=== PATIENT | male | born 1955 | race Two or more races ===

== ENCOUNTER 2021-12-06 06:12 | Inpatient (IN) | payer OTHER ==
[~2021-12-06] VITALS: Ht 162.6 cm; Wt 48.5 kg
--- NOTE | 2021-12-06 06:14 | NUR ---
[facility]. PER RA, PT HAD HIS COVID BOOSTER YESTERDAY. PT PLACED IN BED 5, ER MD AND RT AT BEDSIDE. LINE ESTABLISHED, BLOOD WORK COLLECTED, WILL CONTINUE TO MONITOR.
--- NOTE | 2021-12-06 06:18 | NUR ---
PT TOLERATING VENT SETTINGS AT 100% PORTEX 8 CUFFED FIO2 40% TV 400 PEEP 5
[2021-12-06] MEDS ORDERED: ONDANSETRON HCL/PF 4 MG/2 ML VIAL ONE (06:23)
[2021-12-06] MEDS ORDERED: PIPERACILLIN /TAZOBACTAM 3.375 G VIAL IV ONE (06:23)
--- NOTE | 2021-12-06 06:29 | NUR ---
RT pt placed on mechanical vent with settings from facility. trached, portex 8. settings: AC 18 400 40% +5. vent plugged in to red outlet. ambu bag at bedside. pt suctioned via trach. small, thick, awad secretions suctioned. no sob, no resp distress noted. will endorse to oncoming shift.
[2021-12-06] MEDS ORDERED: IV NS 0.9% 1,000 ML BAG IV ONE ×2 (06:30→07:00)
--- NOTE | 2021-12-06 06:35 | NUR ---
LFA #18 S/L; PATENT AND INTACT. BLOOD COLLECTED
--- NOTE | 2021-12-06 06:55 | NUR ---
URINE AND COVID ANTIGEN SWAB COLLECTED AND SENT TO LAB
[2021-12-06] MEDS ORDERED: ONDANSETRON HCL/PF - ER 4 MG/2 ML VIAL IV ONE (07:00)
[2021-12-06] MEDS ORDERED: PIPERACILLIN /TAZOBACTAM 3.375 G in IV D5W 50 ML IV ONE (07:00)
--- NOTE | 2021-12-06 07:00 | NUR ---
STEAM CONDITIONER FILLING AT PT'S BEDSIDE
[2021-12-06 07:06] LABS: BASOPHILS % (AUTO) 0.1 % (0.0-2.0); EOSINOPHILS % (AUTO) 1.5 % (0.0-6.0); HEMATOCRIT 44 % (39-51); HEMOGLOBIN 14.8 g/dL (13.5-17.5); LYMPHOCYTES # (AUTO) 0.9 K/uL (0.8-4.8); LYMPHOCYTES % (AUTO) 5.2 % (20.0-44.0); MEAN CORPUSCULAR HGB CONC 34 g/dl (31.0-36.0); MEAN CORPUSCULAR VOLUME 99 fL (80-96); MONOCYTES % (AUTO) 5.7 % (2.0-12.0); NEUTROPHILS # (AUTO) 15.2 K/uL (1.8-8.9); NEUTROPHILS % (AUTO) 87.5 % (43.0-81.0); PLATELET COUNT (AUTO) 315 K/uL (150-450); RED BLOOD CELL COUNT(AUTO) 4.38 MIL/uL (4.5-6.0); WHITE BLOOD COUNT (AUTO) 17.4 K/uL (4.3-11.0)
--- NOTE | 2021-12-06 07:28 | NUR ---
RECEIVED REPORT FROM HOMA PICKENS FOR LIGIA. PT IS AAOX0, ON VENT VIA TRACH, ON C WINFORMS DEVELOPER, KEPT RESTED AND COMFORTABLE. WILL CONTINUE TO MONITOR.
[2021-12-06 07:38] LABS: CARBON DIOXIDE 24 mmol/L (21-32); CHLORIDE 103 mmol/L (98-107); CREATININE 0.8 mg/dL (0.6-1.3); GLUCOSE 159 mg/dL (74-106); POTASSIUM 3.8 mmol/L (3.5-5.1); SODIUM SERUM 138 mmol/L (136-145); UREA NITROGEN, BLOOD 14 mg/dL (7-18)
[2021-12-06 07:52] LABS: ALANINE AMINOTRANSFERASE 49 U/L (12-78); ALBUMIN 3.4 g/dL (3.4-5.0); ALKALINE PHOSPHATASE 167 U/L (46-116); ASPARTATE AMINOTRANSFERASE 26 U/L (15-37); BILIRUBIN,DIRECT 0.1 mg/dL (0.0-0.2); BILIRUBIN,TOTAL 0.5 mg/dL (0.2-1.0); TOTAL PROTEIN, SERUM 7.7 g/dL (6.4-8.2)
--- NOTE | 2021-12-06 08:04 | NUR ---
SPOKE TO LAB, WILL LINEMAN A CLASS URINE SAMPLE
[2021-12-06 08:37] LABS: BILIRUBIN,URINE NEGATIVE (NEGATIVE); COLOR,URINE YELLOW (YELLOW); LEUKOCYTE ESTERASE ,URINE NEGATIVE (NEGATIVE); NITRITE, URINE NEGATIVE (NEGATIVE); PROTEIN,URINE TRACE mg/dl (NEGATIVE); UGLUCOSE NEGATIVE (NEGATIVE); UROBILINOGEN,URINE 0.2 EU/dL (0.2)
[2021-12-06 08:47] LABS: BACTERIA,URINE None seen /HPF (None Seen); SQUAMOUS EPITHELIAL CELL,UR Few /HPF (None Seen); WBC,URINE NONE SEEN /HPF (0-3)
--- NOTE | 2021-12-06 09:23 | NUR ---
AT BEDSIDE FOR EVAL.
[2021-12-06] MEDS ORDERED: SENN-175 GT (10:47)
[2021-12-06] MEDS ORDERED: HYDR-4077 GT (10:47)
[2021-12-06] MEDS ORDERED: ENOX40DI SQ (10:47)
[2021-12-06] MEDS ORDERED: MULT-439 GT (10:47)
[2021-12-06] MEDS ORDERED: LACT-209 (10:47)
[2021-12-06] MEDS ORDERED: AMLO2.5T2 GT (10:47)
[2021-12-06] MEDS ORDERED: FERR325T23 GT (10:47)
[2021-12-06] MEDS ORDERED: ASCO500C17 GT (10:47)
[2021-12-06] MEDS ORDERED: LEVE1000 GT (10:47)
[2021-12-06] MEDS ORDERED: LANS30CA56 GT (10:47)
[2021-12-06] MEDS ORDERED: DOCU-141 GT (10:47)
[2021-12-06] MEDS ORDERED: Z GUARD REMEDY 4 OZ OINT TP PRN (11:00)
[2021-12-06] MEDS ORDERED: ACETAMINOPHEN 325 MG TABLET PO PRN (11:00)
[2021-12-06] MEDS ORDERED: IV NS 0.9% 1,000 ML IV PRN (11:00)
[2021-12-06] MEDS ORDERED: ZOLPIDEM TARTRATE 5 MG TABLET PO PRN (11:00)
[2021-12-06] MEDS ORDERED: ONDANSETRON HCL/PF 4 MG/2 ML VIAL IVP PRN (11:00)
--- NOTE | 2021-12-06 11:06 | NUR ---
DR MCCULLOUGH IS MADE AWARE THAT THERE ARE 2 ORDERS OF NORAML SALINE. ONE TO RUN AT 125ML/HR AND THE ORDER ONE TO RUN AT 75ML/HR. PER DR MCCULLOUGH DISCONTINUE NORMAL SALINE AT 75ML/HR. THE ORDER IS READ BACK, VERIFIED. NOTED AND CARRIED OUT.
--- NOTE | 2021-12-06 11:07 | NUR ---
SPOKE TO KAELA ALAN [phone]. SHE STATED PATIENT'S PREVIOUS [facility] [place] AND HE'S BEEN THERE FOR THE PAST 2 YEARS PRIOR TO HIS 2 WEEK INPATIENT AT [facility].
[2021-12-06] MEDS ORDERED: ENOXAPARIN SODIUM 40 MG/0.4 ML DISP.SYRIN SQ ONE (11:09)
[2021-12-06] MEDS: IV NS 0.9% 1,000 ML IV PRN ×2 (11:11→20:23)
[2021-12-06] MEDS: ENOXAPARIN SODIUM 40 MG/0.4 ML DISP.SYRIN SQ SCH (11:20)
--- NOTE | 2021-12-06 12:21 | NUR ---
NOTIFIED NURSING SUP REGARDING PT BED
[2021-12-06] MEDS ORDERED: VANCOMYCIN 1.25 GM in IV D5W 250 ML IV ONE (13:00)
[2021-12-06] MEDS: PIPERACILLIN /TAZOBACTAM 4.5 G in IV D5W 50 ML IV SCH ×2 (14:23→20:21)
--- NOTE | 2021-12-06 19:13 | NUR ---
report given to nurse Luis
--- NOTE | 2021-12-06 21:00 | NUR ---
RN NOTES RECEIVED REPORT FROM ER NURSE GLORIA
--- NOTE | 2021-12-06 21:05 | NUR ---
REPORT GIVEN TO WILLY CLEMENT RN FOR LIGIA. LARGE BM & URINE NOTED. PT KEPT CLEAN & DRY.
--- NOTE | 2021-12-06 21:20 | NUR ---
VOLCANOLOGY TEACHER NOTES RECEIVED A 65 YEAR OLD MALE FROM ER. PATIENT ALERT AND ORIENTED X 0, NON VERBAL. RESPIRATORY EVEN AND UNLABORED, NO SOB NOTED, NOT IN DISTRESS, NO FACIAL GRIMACING NOTED. ON MECHANICAL VENT, SETTING TOLERATED WELL SATING AT 100%. ON TELE MONITORING. SKIN WARM AND DRY. NOTED WITH IV ACCESS AT LEFT FOREARM 18G AND RIGHT WRIST #20, PATENT, INTACT, FLUSHED WITH NS, NO INFILTRATION NOTED. PATIENT NOTED WITH GTUBE, INPACED, INTACT, FLUSHED WITH WATER TOLERATED WELL, NO RESIDUAL NOTED UPON ASPIRATION. HEAD OF BED KEPT ELEVATED. V/S TAKEN AND RECORDED, COMPLETE BODY ASSESSMENT DONE. ALL SAFETY PRECAUTION PROVIDED. BED IN LOWEST POSITION, LOCKED AND BED ALARM ARMED. CALL LIGHT WITHIN REACH.
--- NOTE | 2021-12-06 21:22 | NUR ---
PT TRANSFERRED TO [facility] VIA ACLS PROTOCOL WITH RT. PT TOLERATED TRANSFER WELL. VSS
[2021-12-06 21:33] VITALS: BP 92/45
--- NOTE | 2021-12-06 21:39 | NUR ---
RT Patient transferred from ER BED 5 to [facility]. Vent plugged into red outlet. Alarms loud and audible. Ambu bag and spare trach at bedside. NO SOB noted.
[2021-12-06] MEDS: JEVITY 1.2 CAL 1,000 ML BOTTLE GT PRN (23:25)
[2021-12-07] VITALS: BP 113/53
[2021-12-07] MEDS: VANCOMYCIN 1 GM in IV D5W 250 ML IV SCH ×2 (00:49→12:28)
[2021-12-07] MEDS: PIPERACILLIN /TAZOBACTAM 4.5 G in IV D5W 50 ML IV SCH ×4 (02:22→20:33)
[2021-12-07 04:00] VITALS: BP 116/45
--- NOTE | 2021-12-07 07:03 | NUR ---
RN CLOSING NOTES PATIENT REMAIN STABLE THROUGH OUT THE SHIFT. RESPIRATORY EVEN AND UNLABORED, NO SOB NOTED, NOT IN DISTRESS, NO FACIAL GRIMACING NOTED. ON MECHANICAL VENT, SETTING TOLERATED WELL SATING AT 100%. SR ON TELE MONITORING. RUNNING ON JEVITY 1.2 @65ML/HR. HEAD OF BED KEPT ELEVATED. ALL DUE MEDS GIVEN ORDERED. ALL SAFETY PRECAUTION PROVIDED. BED IN LOWEST POSITION, LOCKED AND BED ALARM ARMED. CALL LIGHT WITHIN REACH.
--- NOTE | 2021-12-07 07:37 | NUR ---
TELE/RN OPENING NOTES RECEIVED PATIENT IN BED. ON COVID ISOLATION. AWAKE, NON-VERBAL. RESPIRATORY EVEN AND UNLABORED, NO SOB NOTED, NOT IN DISTRESS, NO FACIAL GRIMACING NOTED. ON MECHANICAL VENT, SETTING TOLERATED WELL SATING AT 100%. SR ON TELE MONITORING. ON JEVITY 1.2 @65ML/HR RUNNING VIA G-TUBE. SAFETY PRECAUTIONS IN PLACED: BED IN LOWEST LOCKED POSITION, BED ALARM ON, CALL LIGHT WITHIN REACH. HEAD OF BED ELEVATED. WILL CONTINUE TO MONITOR PATIENT.
[2021-12-07 07:57] LABS: BASOPHILS % (AUTO) 0.3 % (0.0-2.0); EOSINOPHILS % (AUTO) 9.3 % (0.0-6.0); HEMATOCRIT 32 % (39-51); HEMOGLOBIN 11.3 g/dL (13.5-17.5); LYMPHOCYTES # (AUTO) 0.9 K/uL (0.8-4.8); MEAN CORPUSCULAR HGB CONC 35 g/dl (31.0-36.0); MEAN CORPUSCULAR VOLUME 98 fL (80-96); MONOCYTES # (AUTO) 0.6 K/uL (0.1-1.30); MONOCYTES % (AUTO) 9.4 % (2.0-12.0); NEUTROPHILS # (AUTO) 4.4 K/uL (1.8-8.9); PLATELET COUNT (AUTO) 194 K/uL (150-450); RED BLOOD CELL COUNT(AUTO) 3.28 MIL/uL (4.5-6.0); WHITE BLOOD COUNT (AUTO) 6.5 K/uL (4.3-11.0)
[2021-12-07] MEDS: IV NS 0.9% 1,000 ML IV PRN ×2 (08:02→17:57)
[2021-12-07 08:24] LABS: ALBUMIN 2.6 g/dL (3.4-5.0); BILIRUBIN,TOTAL 0.7 mg/dL (0.2-1.0); CREATININE 0.6 mg/dL (0.6-1.3); MAGNESIUM 2.3 mg/dL (1.8-2.4); PHOSPHORUS 2.4 mg/dL (2.5-4.9); POTASSIUM 3.6 mmol/L (3.5-5.1); TOTAL PROTEIN, SERUM 5.8 g/dL (6.4-8.2)
[2021-12-07 10:00] VITALS: BP 92/52
[2021-12-07] MEDS: DEXAMETHASONE SOD PHOSPHATE 10 MG/ML VIAL IV SCH (10:47)
[2021-12-07] MEDS ORDERED: NEUTRA PHOS 1 POWD.PACKET GT ONE (12:00)
[2021-12-07] MEDS: ENOXAPARIN SODIUM 40 MG/0.4 ML DISP.SYRIN SQ SCH (12:27)
[2021-12-07 12:35] VITALS: BP 102/55
[2021-12-07] MEDS: JEVITY 1.2 CAL 1,000 ML BOTTLE GT PRN (17:20)
[2021-12-07 18:22] VITALS: BP 104/62
--- NOTE | 2021-12-07 18:47 | NUR ---
TELE/RN CLOSING NOTES PATIENT IN BED. ON COVID ISOLATION. AWAKE, NON-VERBAL. RESPIRATORY EVEN AND UNLABORED, NO SOB NOTED, NOT IN DISTRESS, NO FACIAL GRIMACING NOTED. ON MECHANICAL VENT, SETTINGS TOLERATED WELL SATURATING AT 100%. SR ON TELE MONITORING. ON JEVITY 1.2 @65ML/HR RUNNING VIA G-TUBE. SAFETY PRECAUTIONS IN PLACED: BED IN LOWEST LOCKED POSITION, BED ALARM ON, CALL LIGHT WITHIN REACH. HEAD OF BED ELEVATED. ALL NEEDS MET. KEPT PATIENT CLEAN AND COMFORTABLE ALL THROUGHOUT THE SHIFT. WILL ENDORSE TO THE NEXT SHIFT..
--- NOTE | 2021-12-07 19:15 | NUR ---
HOT FRAME TENDER OPENING NOTES RECEIVED PATIENT LAYING AWAKE IN BED. A/O X0. PATIENT WITH REGULAR AND UNLABORED BREATHING ON MECH. VENT. TOLERATING SETTINGS WELL. NO SIGNS AND SYMPTOMS OF DISTRESS NOTED AT THIS TIME. NO COMPLAINS OF PAIN OR DISCOMFORT AT THIS TIME. IV ACCESS LFA G #18 INFUSING NS 125 ML/HR AND R WRIST G #20 SL. IV ACCESSES PATENT AND INTACT. SAFETY PRECAUTIONS ENFORCED WITH BED LOCKED AND AT LOWEST POSITION. SIDERAILS UP X2. CALL LIGHT WITHIN REACH AT ALL TIMES. WILL CONTINUE TO MONITOR PATIENT.
[2021-12-07 20:00] VITALS: BP 114/71
[2021-12-08] VITALS: BP 109/61
[2021-12-08] MEDS: VANCOMYCIN 1 GM in IV D5W 250 ML IV SCH (01:56)
[2021-12-08] MEDS: IV NS 0.9% 1,000 ML IV PRN ×2 (02:01→13:16)
[2021-12-08] MEDS: PIPERACILLIN /TAZOBACTAM 4.5 G in IV D5W 50 ML IV SCH ×2 (02:36→08:08)
[2021-12-08 04:00] VITALS: BP 105/63
--- NOTE | 2021-12-08 06:58 | NUR ---
INTERLOCKING AND SIGNAL MECHANIC CLOSING NOTES PATIENT STILL LAYING AWAKE IN BED. A/O X0. PATIENT WITH REGULAR AND UNLABORED BREATHING ON MECH. VENT. TOLERATING SETTINGS WELL. NO SIGNS AND SYMPTOMS OF DISTRESS NOTED AT THIS TIME. NO COMPLAINS OF PAIN OR DISCOMFORT AT THIS TIME. PATIENT ON TELE MONITOR READING SR @ 72 BPM. IV ACCESS LFA G #18 INFUSING NS 125 ML/HR AND R WRIST G #20 SL. IV ACCESSES PATENT AND INTACT. SAFETY PRECAUTIONS ENFORCED WITH BED LOCKED AND AT LOWEST POSITION. SIDERAILS UP X2. CALL LIGHT WITHIN REACH AT ALL TIMES. WILL ENDORSE CONTINUITY OF CARE TO DAY SHIFT NURSE.
--- NOTE | 2021-12-08 07:30 | NUR ---
TELE/RN AM NOTES RECEIVED PATIENT IN BED. OPENS EYES, NONVERBAL, WITH PORTEX 8 TRACH TO MECHANICAL VENTILATOR WITH SETTING AC 18 TV 400 FIO2 40% PEEP 5, BREATHING EVEN AND UNLABORED, O2 SAT AT 100%, NOT IN DISTRESS, NO SIGNS OF PAIN OR FACIAL GRIMACING NOTED. LFA 18G WITH NS AT 125 ML/HR INFUSING WELL. SITE CLEAR. RT WRIST G20 FLUSHES WELL, SITE CLEAR. GT IN PLACE, CHECKED FOR PLACEMENT, 10 ML RESIDUAL, ONGOING JEVITY 1.2 @65ML/HR RUNNING VIA G-TUBE. SEE NURSING FLOWSHEET FOR SKIN ISSUES. FOR WOUND CONSULT. SAFETY PRECAUTIONS IN PLACED: BED IN LOWEST LOCKED POSITION, BED ALARM ON, CALL LIGHT WITHIN REACH. HEAD OF BED ELEVATED. COVID ISOLATION PRECAUTION OBSERVED. WILL CONTINUE TO MONITOR PATIENT. Addendum: 12/08/21 at 1002 by SUSAN LY RN ADDENDUM SR HR 62 ON MONITOR
[2021-12-08 07:41] LABS: CALCIUM, SERUM 8.1 mg/dL (8.5-10.1); CREATININE 0.5 mg/dL (0.6-1.3); PHOSPHORUS 2.2 mg/dL (2.5-4.9); POTASSIUM 3.4 mmol/L (3.5-5.1)
[2021-12-08 08:00] VITALS: BP 113/62
[2021-12-08] MEDS: DEXAMETHASONE SOD PHOSPHATE 10 MG/ML VIAL IV SCH (08:07)
--- NOTE | 2021-12-08 09:30 | NUR ---
RN NOTES DUE MEDS GIVEN. TURNED AND REPOSITION
--- NOTE | 2021-12-08 11:02 | NUR ---
WOUND CARE CONSULT: REVIEWED CHART, NURSING DOCUMENTATION AND PHOTOS WHICH INDICATE GENERALIZED SKIN CONDITION WITH SPOTS AND SACRAL SCARRING, PRESENT ON ADMISSION. RECOMMENDATIONS MADE FOR SKIN PROTECTION. DISCUSSED WITH NURSING STAFF. DEFER TO PMD FOR GENERALIZED SKIN CONDITION/RASH. MD IN AGREEMENT WITH PLAN OF CARE. Addendum: 12/08/21 at 1110 by JAZ MUÑIZ WNDNU [facility]
[2021-12-08] MEDS: PIPERACILLIN /TAZOBACTAM 3.375 G in IV D5W 100 ML IV SCH ×2 (11:29→19:58)
[2021-12-08] MEDS: hydrALAZINE HCL 50 MG TABLET GT SCH ×2 (11:31→17:02)
[2021-12-08] MEDS: ENOXAPARIN SODIUM 40 MG/0.4 ML DISP.SYRIN SQ SCH (11:32)
[2021-12-08] MEDS: JEVITY 1.2 CAL 1,000 ML BOTTLE GT PRN (11:43)
[2021-12-08 12:00] VITALS: BP 123/60
[2021-12-08] MEDS: VANCOMYCIN HCL 0.75 GM in IV D5W 250 ML IV SCH ×2 (13:16→21:11)
[2021-12-08] MEDS ORDERED: POTASSIUM CHLORIDE 20 MEQ POWDER PACKET NG SCH (13:30)
[2021-12-08 16:00] VITALS: BP 115/64
[2021-12-08] MEDS ORDERED: NEUTRA PHOS 1 POWD.PACKET GT ONE (16:00)
--- NOTE | 2021-12-08 18:55 | NUR ---
RN NOTES RECEIVED REPORT FROM LABORATORY, GRAM STAIN OF BLOOD CULTURE IS POSITIVE FOR STAPHYLOCCUS IN CLUSTERS. Addendum: 12/08/21 at 1916 by SUSAN LY RN CORRECTION: GRAM CULTURE GRAM STAIN RESULT IS COCCI GRAM POSITIVE IN CLUSTERS
--- NOTE | 2021-12-08 19:25 | NUR ---
RN NOTES PT RESTING COMFORTABLY. NOT IN ANY DISTRESS. MECHANICAL VENT WELL TOLERATED. PM CARE DONE EARLIER, TURNED AND RESPOSITIONED Q 2 HOURS. SUCTIONED PRN. ENDORSED TO NEXT SHIFT FOR LIGIA.
--- NOTE | 2021-12-08 19:45 | NUR ---
RN OPENING NOTES RECEIVED PATIENT IN BED. OPENS BOTH EYES, NONVERBAL. WITH TRACH PORTEX 18, ON MECHANICAL VENTILATOR WITH SETTING AC 18 TV 400 FIO2 40% PEEP 5, NO SOB NOTED, BREATHING EVEN AND UNLABORED,IV ACCES LFA#18G, WITH RUNNING NS AT 125 ML/HR INFUSING WELL. RT WRIST G# 20 G INTACT AND PATENT. NO S/S OF INFILTRATIONS. GT FEEDING WELL TOLERATED WELL. ON JEVITY 1.2 @65ML/HR RUNNING VIA G-TUBE. CAMERON LIZAMA CALLED BACK REGARDING GRAM + COCCI IN CLUSTER. NO NEW ORDER GIVEN BECAUSE PT IS ALREADY ON IV ATB THERAPY. ALL SAFETY PRECAUTIONS IN PLACED. BED IN LOWEST POSITION AND LOCKED. PLACE CALL LIGHT WITHIN REACH. ON ISOLATION PRECAUTION IN PLACE. WILL CONTINUE TO MONITOR.
[2021-12-08 20:00] VITALS: BP 110/65
[2021-12-08] MEDS: AMLODIPINE BESYLATE 2.5 MG TABLET GT SCH (21:11)
[2021-12-08] MEDS: SENNOSIDES 8.6 MG TABLET GT SCH (21:11)
[2021-12-09] VITALS: BP 111/65
[2021-12-09] MEDS: hydrALAZINE HCL 50 MG TABLET GT SCH ×4 (00:10→17:30)
[2021-12-09 04:00] VITALS: BP 111/65
[2021-12-09] MEDS: PIPERACILLIN /TAZOBACTAM 3.375 G in IV D5W 100 ML IV SCH ×3 (04:10→19:44)
[2021-12-09] MEDS: VANCOMYCIN HCL 0.75 GM in IV D5W 250 ML IV SCH ×3 (05:11→21:49)
--- NOTE | 2021-12-09 06:40 | NUR ---
RN CLOSING NOTES PATIENT IN BED, AWAKE, OPENS BOTH EYES, NONVERBAL. WITH TRACH PORTEX 18, ON MECHANICAL VENTILATOR WITH SETTING AC 18 TV 400 FIO2 40% PEEP 5, O2 SAT 99%. NO SOB NOTED, BREATHING EVEN AND UNLABORED,IV ACCES LFA#18G, WITH RUNNING NS AT 125 ML/HR INFUSING WELL. RT WRIST G# 20 G INTACT AND PATENT. NO S/S OF INFILTRATIONS. GT FEEDING WELL TOLERATED WELL. ON JEVITY 1.2 @65ML/HR RUNNING VIA G-TUBE. ALL DUE MEDS GIVEN ORDER AND PT TOLERATED WELL. ALL SAFETY PRECAUTIONS IN PLACED. BED IN LOWEST POSITION AND LOCKED. PLACE CALL LIGHT WITHIN REACH. ON ISOLATION PRECAUTION IN PLACE. WILL ENDORSE TO MORNING SHIFT NURSE.
[2021-12-09] MEDS: IV NS 0.9% 1,000 ML IV PRN (07:13)
--- NOTE | 2021-12-09 07:51 | NUR ---
RN OPENING NOTES PATIENT AWAKE IN BED RESTING, PATIENT IS NON-VERBAL. NO S/S OF PAIN NOTED AT THIS TIME. PATIENT ON VENT, NO DISTRESS NOTED. IV ACCESS LFA #18G AND R WRIST. INTACT, PATENT AND FLUSHING WELL. PATIENT HAVE AN EXTERNAL SALES DEVELOPMENT DIRECTOR WITH CURRENT READING OF S.R., NO CARDIAC DISTRESS NOTED. FALL AND SAFETY MEASURES IN PLACE, BED ALARM ON, BED IN LOW AND LOCK POSITION, CALL LIGHT AND TABLE WITHIN EASY REACH, SIDE RAILS UP X2. WILL CONTINUE TO MONITOR.
[2021-12-09 08:00] VITALS: BP 102/62
[2021-12-09 08:16] LABS: CALCIUM, SERUM 7.9 mg/dL (8.5-10.1); CREATININE 0.6 mg/dL (0.6-1.3); PHOSPHORUS 2.4 mg/dL (2.5-4.9); POTASSIUM 3.3 mmol/L (3.5-5.1)
[2021-12-09] MEDS: DEXAMETHASONE SOD PHOSPHATE 10 MG/ML VIAL IV SCH (09:26)
[2021-12-09] MEDS: FERROUS SULFATE (325 MG) 325 MG/TAB TABLET GT SCH (09:27)
[2021-12-09] MEDS: DOCUSATE SODIUM 100 MG CAPSULE PO SCH (09:27)
[2021-12-09] MEDS: AMLODIPINE BESYLATE 2.5 MG TABLET GT SCH ×2 (09:27→21:50)
[2021-12-09] MEDS: JEVITY 1.2 CAL 1,000 ML BOTTLE GT PRN (09:47)
[2021-12-09] MEDS: ENOXAPARIN SODIUM 40 MG/0.4 ML DISP.SYRIN SQ SCH (11:39)
[2021-12-09] MEDS ORDERED: NEUTRA PHOS 1 POWD.PACKET GT ONE (12:00)
[2021-12-09 12:01] VITALS: BP 122/72
[2021-12-09 16:00] VITALS: BP 116/71
--- NOTE | 2021-12-09 18:45 | NUR ---
RN CLOSING NOTES PATIENT AWAKE IN BED RESTING, PATIENT IS NON-VERBAL. NO S/S OF PAIN NOTED AT THIS TIME. PATIENT ON VENT, NO DISTRESS NOTED. IV ACCESS LFA #18G AND R WRIST. INTACT, PATENT AND FLUSHING WELL. PATIENT HAVE AN EXTERNAL AQUARIST WITH CURRENT READING OF S.R. AND HR OF 83, NO CARDIAC DISTRESS NOTED. ALL SCHEDULED MEDS ADMINISTERED. FALL AND SAFETY MEASURES IN PLACE, BED ALARM ON, BED IN LOW AND LOCK POSITION, CALL LIGHT AND TABLE WITHIN EASY REACH, SIDE RAILS UP X2. WILL ENDORSE TO BONDERIZER OPERATOR.
--- NOTE | 2021-12-09 19:45 | NUR ---
TIRE CHANGER AIRCRAFT OPENING NOTE PATIENT LYING IN BED WITH EYES CLOSED, PATIENT IS NON-VERBAL. NO S/S OF PAIN NOTED AT THIS TIME. PATIENT ON VENT, NO S/S OF RESPIRATORY DISTRESS OR SOB NOTED, BREATHING EVEN AND UNLABORED. IV ACCESS LFA #18G INTACT AND RUNNING NS @ 125 ML/HR, AND R WRIST IV ACCESS INTACT AND FLUSHING WELL. PT GT FEEDING RUNNING JEVITY 1.2 @ 65 ML/HR. FALL AND SAFETY MEASURES IN PLACE: BED ALARM ON, BED LOCKED IN LOW POSITION, CALL LIGHT AND TABLE WITHIN EASY REACH, SIDE RAILS UP X2, HOB ELEVATED. WILL CONTINUE TO MONITOR PATIENT
[2021-12-09 20:00] VITALS: BP 110/56
[2021-12-09] MEDS: SENNOSIDES 8.6 MG TABLET GT SCH (21:50)
[2021-12-10 00:30] VITALS: BP 115/74
[2021-12-10] MEDS: hydrALAZINE HCL 50 MG TABLET GT SCH ×4 (01:04→17:11)
[2021-12-10] MEDS: IV NS 0.9% 1,000 ML IV PRN (01:04)
[2021-12-10] MEDS: PIPERACILLIN /TAZOBACTAM 3.375 G in IV D5W 100 ML IV SCH ×3 (03:56→20:14)
[2021-12-10 04:30] VITALS: BP 108/64
[2021-12-10] MEDS: VANCOMYCIN HCL 0.75 GM in IV D5W 250 ML IV SCH ×3 (05:34→20:55)
[2021-12-10 07:13] LABS: CALCIUM, SERUM 8.6 mg/dL (8.5-10.1); CREATININE 0.5 mg/dL (0.6-1.3); PHOSPHORUS 2.7 mg/dL (2.5-4.9); POTASSIUM 3.3 mmol/L (3.5-5.1)
--- NOTE | 2021-12-10 07:26 | NUR ---
BARTENDER HELPER CLOSING NOTE PATIENT LYING IN BED WITH EYES CLOSED, PATIENT IS NON-VERBAL. NO SIGNIFICANT CHANGES THROUGHOUT SHIFT, MEDICATIONS GIVEN ORDERED. NO S/S OF PAIN NOTED AT THIS TIME. PATIENT ON VENT, NO S/S OF RESPIRATORY DISTRESS OR SOB NOTED, BREATHING EVEN AND UNLABORED. IV ACCESS LFA #18G INTACT AND RUNNING ZOSYN @ 25 ML/HR, AND R WRIST IV ACCESS INTACT AND FLUSHING WELL. PT GT FEEDING RUNNING JEVITY 1.2 @ 65 ML/HR. PATIENT TURNED Q2H AND MEPILEX PLACED ON SACRUM AND HEELS. FALL AND SAFETY MEASURES IN PLACE: BED ALARM ON, BED LOCKED IN LOW POSITION, CALL LIGHT AND TABLE WITHIN EASY REACH, SIDE RAILS UP X2, HOB ELEVATED. ENDORSED TO DAY SHIFT NURSE FOR CONTINUITY OF CARE
--- NOTE | 2021-12-10 07:26 | NUR ---
MACHINE CLOTH EXAMINER NOTES PATIENT IN BED, EYES OPEN, NON-VERBAL. [facility] SETTINGS TOLERATED AT THIS TIME, NO S/S OF RESPIRATORY DISTRESS. IV LINE ON LFA #18G INTACT. GT FEEDING INFUSING. SAFETY MEASURES IN PLACE: BED ALARM ON, BED LOCKED AND IN LOW POSITION, CALL LIGHT WITHIN REACH, SIDE RAILS UP X2, HOB ELEVATED. SAFETY MEASURES IN PLACE. WILL CONTINUE TO MONITOR.
[2021-12-10 08:00] VITALS: BP 120/76
[2021-12-10] MEDS: FERROUS SULFATE (325 MG) 325 MG/TAB TABLET GT SCH (09:28)
[2021-12-10] MEDS: DOCUSATE SODIUM 100 MG CAPSULE PO SCH (09:28)
[2021-12-10] MEDS: AMLODIPINE BESYLATE 2.5 MG TABLET GT SCH ×2 (09:29→20:54)
[2021-12-10] MEDS: ENOXAPARIN SODIUM 40 MG/0.4 ML DISP.SYRIN SQ SCH (09:32)
[2021-12-10] MEDS: DEXAMETHASONE SOD PHOSPHATE 10 MG/ML VIAL IV SCH (09:33)
[2021-12-10] MEDS ORDERED: POTASSIUM CHLORIDE 20 MEQ POWDER PACKET GT SCH (10:00)
[2021-12-10] MEDS: JEVITY 1.2 CAL 1,000 ML BOTTLE GT PRN (10:01)
[2021-12-10 12:00] VITALS: BP 121/79
--- NOTE | 2021-12-10 12:45 | NUR ---
RN NOTES PATIENT CLEANED AND REPOSITIONED IN BED.
[2021-12-10 16:00] VITALS: BP 118/71
--- NOTE | 2021-12-10 18:21 | NUR ---
RN NOTES FEEDING BAG CHANGED; ASPIRATION PRECS OBSERVED. NEW IV LINE PLACE ON LAC #18 GAUGE. HAD 2 BM TODAY. DUE MEDS GIVEN DURING THE SHIFT. SAFETY MEASURES MAINTAINED.
--- NOTE | 2021-12-10 19:37 | NUR ---
RN OPENING NOTES RECEIVED PATIENT IN BED. OPENS BOTH EYES, NONVERBAL. WITH TRACH PORTEX 8, ON MECHANICAL VENTILATOR WITH SETTING AC 18 TV 400 FIO2 40% PEEP 5, NO SOB NOTED, BREATHING EVEN AND UNLABORED,IV ACCES LAC#18G, WITH RUNNING NS AT 125 ML/HR INFUSING WELL. RT WRIST G# 20 G AND LFA#18G, INTACT AND PATENT. NO S/S OF INFILTRATIONS. GT FEEDING JEVITY 1.2 @65ML/HR AND RUNNING WELL. GTUBE SITE INTACT. NO FACIAL GRIMACING NOTED. NO ACUTE DISTRESS. ALL SAFETY PRECAUTIONS IN PLACE. BED IN LOWEST POSITION AND LOCKED. PLACE CALL LIGHT WITHIN REACH. ON ISOLATION PRECAUTION IN PLACE. WILL CONTINUE TO MONITOR.
[2021-12-10 20:00] VITALS: BP 100/70
[2021-12-10] MEDS: SENNOSIDES 8.6 MG TABLET GT SCH (21:38)
[2021-12-11] VITALS: BP 107/65
[2021-12-11] MEDS: hydrALAZINE HCL 50 MG TABLET GT SCH ×5 (00:25→23:47)
[2021-12-11] MEDS: PIPERACILLIN /TAZOBACTAM 3.375 G in IV D5W 100 ML IV SCH ×3 (03:44→19:33)
[2021-12-11 04:00] VITALS: BP 124/71
[2021-12-11 04:31] LABS: CALCIUM, SERUM 8.6 mg/dL (8.5-10.1); CREATININE 0.5 mg/dL (0.6-1.3); POTASSIUM 3.8 mmol/L (3.5-5.1)
[2021-12-11] MEDS: VANCOMYCIN HCL 0.75 GM in IV D5W 250 ML IV SCH ×3 (04:53→21:06)
--- NOTE | 2021-12-11 06:29 | NUR ---
RN CLOSING NOTES PATIENT IN BED, ALERT, ORIENTED X0, OPENS BOTH EYES, NONVERBAL. WITH TRACH PORTEX 8, ON MECHANICAL VENTILATOR WITH SETTING AC 18 TV 400 FIO2 40% PEEP 5AND TOLERATED WELL. BREATHING EVEN AND UNLABORED, IV ACCES LAC#18G, WITH RUNNING NS AT 125 ML/HR INFUSING WELL. RT WRIST G# 20 G AND LFA#18G, INTACT AND PATENT. NO S/S OF INFILTRATIONS. ON GT FEEDING JEVITY 1.2 @65ML/HR AND RUNNING WELL. GTUBE SITE INTACT AND PATENT. NO BLEEDING NOTED. NO FACIAL GRIMACING. NO ACUTE DISTRESS. ALL DUE MEDS GIVEN ORDERED. ALL SAFETY PRECAUTIONS IN PLACE. BED IN LOWEST POSITION AND LOCKED. PLACE CALL LIGHT WITHIN REACH. SIDE RAILS UP X3. WILL ENDORSE TO MORNING SHIFT NURSE.
--- NOTE | 2021-12-11 07:30 | NUR ---
RN NOTES RECEIVED PATIENT AWAKE, A/OX0, OPEN EYES, NON VERBAL IN BED, ON VENTILATOR WITH SETTING OF AC 18 TV 400 FIO2 40% PEEP 5AND TOLERATING WELL, NO S/SX OF SOB OR DISTRESS NOTED. IV SITES LAC#18G, WITH RUNNING NS AT 125 ML/HR INFUSING WELL. RT WRIST G# 20 G AND LFA#18G, INTACT AND PATENT, AND FLUSHED WITH NS. NO S/S OF INFILTRATIONS. PT HAS GT FEEDING JEVITY 1.2 @65ML/HR AND RUNNING. ALL SAFETY PRECAUTIONS OBSERVED. BED IN LOW POSITION AND LOCKED. CALL LIGHT WITHIN REACH. SIDE RAILS UP X3. WILL LIGIA
[2021-12-11 08:00] VITALS: BP 111/61
[2021-12-11] MEDS: FERROUS SULFATE (325 MG) 325 MG/TAB TABLET GT SCH (09:17)
[2021-12-11] MEDS: DOCUSATE SODIUM 100 MG CAPSULE PO SCH (09:17)
[2021-12-11] MEDS: AMLODIPINE BESYLATE 2.5 MG TABLET GT SCH ×2 (09:18→20:13)
[2021-12-11] MEDS: DEXAMETHASONE SOD PHOSPHATE 10 MG/ML VIAL IV SCH (09:18)
[2021-12-11] MEDS: ENOXAPARIN SODIUM 40 MG/0.4 ML DISP.SYRIN SQ SCH (11:06)
[2021-12-11] MEDS: JEVITY 1.2 CAL 1,000 ML BOTTLE GT PRN (11:06)
[2021-12-11 12:00] VITALS: BP 116/60
[2021-12-11 16:00] VITALS: BP 97/61
--- NOTE | 2021-12-11 18:20 | NUR ---
RN NOTE PATIENT RREMAIN AWAKE, A/OX0, OPEN EYES, NON VERBAL IN BED, ON VENTILATOR WITH SETTING OF AC 18 TV 400 FIO2 40% PEEP 5AND TOLERATING WELL, NO S/SX OF SOB OR DISTRESS NOTED. IV SITES LAC#18G, WITH RUNNING NS AT 125 ML/HR INFUSING WELL. RT WRIST G# 20 G INTACT AND PATENT, AND FLUSHED WITH NS. NO S/S OF INFILTRATIONS. PT HAS GT FEEDING JEVITY 1.2 @65ML/HR AND RUNNING. NO ACUTE DISTRESS NOTED, HOB KEPT ELEVATED, DUE MED GIVEN, ALL SAFETY PRECAUTIONS OBSERVED. BED IN LOW POSITION AND LOCKED. CALL LIGHT WITHIN REACH. SIDE RAILS UP X3. WILL ENDORSE LIGIA TO NOC SHIFT.
[2021-12-11] MEDS: IV NS 0.9% 1,000 ML IV PRN (19:46)
[2021-12-11 21:43] VITALS: BP 102/63
[2021-12-11] MEDS: SENNOSIDES 8.6 MG TABLET GT SCH (22:33)
[2021-12-12] VITALS: BP 105/68
[2021-12-12 04:00] VITALS: BP 104/60
[2021-12-12] MEDS: PIPERACILLIN /TAZOBACTAM 3.375 G in IV D5W 100 ML IV SCH ×2 (04:05→13:05)
[2021-12-12] MEDS: VANCOMYCIN HCL 0.75 GM in IV D5W 250 ML IV SCH ×2 (05:32→13:06)
[2021-12-12] MEDS: hydrALAZINE HCL 50 MG TABLET GT SCH ×3 (05:33→17:11)
[2021-12-12] MEDS: IV NS 0.9% 1,000 ML IV PRN (05:42)
[2021-12-12 06:51] LABS: CALCIUM, SERUM 8.4 mg/dL (8.5-10.1); CREATININE 0.5 mg/dL (0.6-1.3); POTASSIUM 3.7 mmol/L (3.5-5.1)
--- NOTE | 2021-12-12 07:06 | NUR ---
RN CLOSING NOTES NO SIGNIFICANT CHANGES THROUGH OUT THE SHIFT. RESPIRATORY EVEN AND UNLABORED, NO SOB NOTED, NO S/S OF DISTRESS NOTED. HEAD OF BED KEPT ELEVATED. ALL DUE MEDS GIVEN ORDERED. ALL SAFETY MEASURES PROVIDED. BED IN LOWEST POSITION, LOCKED, BED ALARM ARMED. CALL LIGHT WITHIN REACH
--- NOTE | 2021-12-12 07:53 | NUR ---
CASH APPLICATIONS ASSOCIATE OPENING NOTES RECEIVED PT IN BED, A/O X 0, NON VERBAL, ON MECHANICAL VENTILATION SETTINGS TOLERATED WELL. RESPIRATORY EVEN AND UNLABORED, NO SOB NOTED, NO S/S OF DISTRESS NOTED . PATIENT NOTED WITH LAC #18 AND RIGHT WRIST #20 IV LINE, PATENT, INTACT AND FLUSHED WITH NS, RUNNING WITH NS 1L @ 125 ML/HR. GTUBE PATENT AND INTACT, FLUSH WITH WATER, NO RESIDUAL NOTED UPON ASPIRATION, RUNNING WITH JEVITY 1.2 @ 65 ML/HR, HEAD OF BED KEPT ELEVATED. ALL SAFETY MEASURES PROVIDED. BED IN LOWEST POSITION, LOCKED, BED ALARM ARMED. CALL LIGHT WITHIN REACH. WILL CONTINUE TO MONITOR.
[2021-12-12 08:00] VITALS: BP 106/66
[2021-12-12] MEDS: AMLODIPINE BESYLATE 2.5 MG TABLET GT SCH (09:00)
[2021-12-12] MEDS: DOCUSATE SODIUM 100 MG CAPSULE PO SCH (09:27)
[2021-12-12] MEDS: FERROUS SULFATE (325 MG) 325 MG/TAB TABLET GT SCH (09:27)
[2021-12-12] MEDS: DEXAMETHASONE SOD PHOSPHATE 10 MG/ML VIAL IV SCH (09:28)
[2021-12-12 12:00] VITALS: BP 122/73
[2021-12-12] MEDS ORDERED: VANC1VIA34 XX (13:04)
[2021-12-12] MEDS: ENOXAPARIN SODIUM 40 MG/0.4 ML DISP.SYRIN SQ SCH (13:04)
[2021-12-12] MEDS ORDERED: LACT-209 GT (13:04)
[2021-12-12] MEDS ORDERED: VANC750F2 IV (13:04)
[2021-12-12] MEDS ORDERED: DEXA4TAB GT (13:08)
--- NOTE | 2021-12-12 14:57 | NUR ---
telex operator note called to snf ,report given also called carla mantilla notified that paint will transfer to [facility]
[2021-12-12 17:11] VITALS: BP 113/72
== END 2021-12-12 20:11 | DRG 720 ==
LOC: ER 06:23 → TRANSITION 10:03 → TELE1 20:28
PROVIDERS: ADMIT Internal Medicine; ATTEND Nurse Practitioner Acute Care
PROC: 5A1955Z Respiratory Ventilation, Greater than 96 Consecutive Hours (ICD-10-PCS; principal; 2021-12-06)
DX: A41.1 Sepsis due to other specified staphylococcus (principal); J96.21 Acute and chronic respiratory failure with hypoxia; J69.0 Pneumonitis due to inhalation of food and vomit; U07.1 COVID-19; G93.41 Metabolic encephalopathy; E87.2 Acidosis; G93.1 Anoxic brain damage, not elsewhere classified; Z99.11 Dependence on respirator [ventilator] status; E87.6 Hypokalemia; G40.909 Epilepsy, unspecified, not intractable, without status epilepticus; I10 Essential (primary) hypertension; Z93.1 Gastrostomy status; R13.10 Dysphagia, unspecified; Z87.01 Personal history of pneumonia (recurrent); Z93.0 Tracheostomy status
CPT/HCPCS: 31720; 36415; 71045-TC; 80048-TC; 80053-TC; 80061-TC; 80076-TC; 80202-TC; 81001; 83605-TC; 83735-TC; 84100-TC; 84484-TC; 85025-TC; 85378-TC; 85730-TC; 86140-TC; 87040-TC; 87081-TC; 87086-TC; 93307-TC; 94003-TC; 94760-TC; 94762-TC; 94799-TC; A7526; G0378; J1100; J1650; J2405; J2543; J3370; J3490; J7030; J7040; J7050; J7060